=== PATIENT | male | born 1990 | race Caucasian/White ===

== ENCOUNTER 2018-02-27 06:10 | Day surgery (SDC) | payer OTHER | END 2018-02-27 17:42 | disposition home or self-care (01) | LOC: CIR.AMB 06:10 | DX: S42.031A Displaced fracture of lateral end of right clavicle, initial encounter for closed fracture (principal); S43.491A Other sprain of right shoulder joint, initial encounter ==

== ENCOUNTER 2023-12-29 11:01 | Emergency (ER) | payer OTHER ==
[~2023-12-29] VITALS: Ht 175.3 cm; Wt 85.3 kg
[2023-12-29] MEDS ORDERED: 0.9 % SODIUM CHLORIDE 1,000 ML IV STA (12:29)
[2023-12-29] MEDS ORDERED: ONDANSETRON HCL 2 MG/ML VIAL IV STA (12:31)
[2023-12-29] MEDS ORDERED: FAMOtidine 10 MG/ML (4ML VIAL) IV STA (12:31)
[2023-12-29 14:01] LABS: HEMATOCRIT 42.6 % (39.0-48.0); HEMOGLOBIN 14.6 g/dL (13-16.00); MEAN CELL VOLUME 89.9 fL (80.0-100.00); MEAN CORPUSCULAR HEMOGLOBIN 30.8 pg (27.00-32.0); MEAN CORPUSCULAR HGB CONC 34.3 g/dl (32.0-36.0); PLATELET COUNT 261 K/uL (150-450); RED BLOOD COUNT 4.74 M/uL (4.00-6.00); RED CELL DISTRIBUTION WIDTH 14.5 % (11.5-14.5)
[2023-12-29 14:29] LABS: ALBUMIN 3.9 gm/dL (3.4-5.0); BILIRUBIN TOTAL 0.61 mg/dL (0.3-1.2); BILIRUBIN,CONJUGATED 0.14 mg/dL (0.0-0.2); BILIRUBIN,UNCONJUGATED 0.47 mg/dL (0.0-0.6); CALCIUM 8.8 mg/dL (8.5-10.1); CREATININE SERUM 0.78 mg/dL (0.70-1.30); GFR 115.35; POTASSIUM 3.04 mEq/L (3.5-5.1); TOTAL PROTEIN 7.7 gm/dL (6.4-8.2)
[2023-12-29 15:09] LABS: URINE APPEARANCE Clear; URINE BILIRRUBIN Small (NEGATIVE); URINE BLOOD Negative; URINE COLOR Dark Yellow; URINE GLUCOSE Negative (NEGATIVE); URINE LEUKOCYTE Negative; URINE NITRATE Negative; URINE PROTEIN 30 (NEGATIVE)
[2023-12-29 15:10] LABS: URINE BACTERIA 37.7 uL (0.0-1933); URINE EPITHELIAL CELLS 7.8 uL (0.0-38.8); URINE RBC 22.2 uL (0.0-20.8); URINE WBC 4.7 uL (0.0-23.2)
== END 2023-12-29 17:06 | disposition home or self-care (01) ==
LOC: ER 11:01
PROVIDERS: General Practice
DX: K52.89 Other specified noninfective gastroenteritis and colitis (principal)